=== PATIENT | female | born 1965 | race Hispanic/Latino ===

== ENCOUNTER 2021-08-30 11:25 | Outpatient (CLI) | payer BC | END 2021-08-30 11:26 | disposition home or self-care (01) | LOC: BICMAMMO 11:25 | PROVIDERS: ATTEND Family Medicine | DX: Z12.31 Encounter for screening mammogram for malignant neoplasm of breast (principal) | CPT/HCPCS: 77063; 77067 ==

== ENCOUNTER 2024-04-30 18:25 | Emergency (ER) | payer BC ==
[2024-04-30 19:10] LABS: #Basophils 0.05 10x3/uL (0.0-0.2); %Basophils 0.5 % (0.0-1.0); %Eosinophils 1.5 % (0.0-10.0); %Lymphocytes 31.8 % (21.0-51.0); %Neutrophils 60.9 % (42.0-75.0); Hematocrit 40.8 % (36.0-47.0); Hemoglobin 14.4 g/dL (12.0-16.0); Mean Corpuscular HGB CONC 35.3 g/dL (32.0-36.0); Mean Corpuscular Hemoglobin 29.7 pg (27.0-31.0); Mean Corpuscular Volume 84.1 fL (78.0-98.0); Mean Platelet Volume 8.6 fL (7.4-10.4); Platelet Count 222 10x3/uL (130-400); RBC Distribution Width 12.3 % (11.5-14.5); Red Blood Cell (RBC) Count 4.85 mill/uL (4.20-5.40)
[2024-04-30 19:24] LABS: INR-International Normal Ratio 0.9; PTT 29.5 sec (22.9-36.1); Prothrombin Time 12.4 sec (12.0-14.7)
[2024-04-30 19:28] LABS: ALT (SGPT) 15 U/L (8-55); AST (SGOT) 14 U/L (5-34); Albumin 3.7 g/dL (3.5-5.0); Alkaline Phosphatase 98 U/L (40-110); Anion Gap 15 mmol/L (10-20); BUN (Urea Nitrogen) 11 mg/dL (9.8-20.1); Bilirubin, Total 0.3 mg/dL (0.2-1.2); Calc. Creatinine Clearance 0 mL/min (70-130); Calcium 9.4 mg/dL (7.8-10.44); Carbon Dioxide 25 mmol/L (22-29); Chloride 104 mmol/L (98-107); Estimated GFR 67; Globulin 3.4 g/dL (2.4-3.5); Glucose 123 mg/dL (70-105); Potassium 3.9 mmol/L (3.5-5.1); Protein, Total 7.1 g/dL (6.0-8.3); Sodium 140 mmol/L (136-145)
[2024-04-30 19:32] LABS: Troponin I Less than 0.010 ng/mL (< 0.028)
[2024-04-30] MEDS ORDERED: Aspirin Chewable 81 MG TAB ONE (19:59)
== END 2024-04-30 22:40 | disposition home or self-care (01) ==
LOC: ERS 18:25
DX: R20.2 Paresthesia of skin (principal); R20.0 Anesthesia of skin; Z55.6 Problems related to health literacy
CPT/HCPCS: 36415; 70450; 71045; 80053; 84484; 85025; 85610; 85730; 93005

== ENCOUNTER 2024-07-01 09:30 | Outpatient (CLI) | payer BC | END 2024-07-01 09:31 | disposition home or self-care (01) | LOC: BICMAMMO 09:30 | PROVIDERS: ATTEND Family Medicine | DX: Z12.31 Encounter for screening mammogram for malignant neoplasm of breast (principal) | CPT/HCPCS: 77063; 77067 ==